=== PATIENT | female | born 1990 | race Caucasian/White ===

== ENCOUNTER 2017-07-07 11:37 | Emergency (ER) | payer OTHER ==
[~2017-07-07] VITALS: Ht 149.8 cm; Wt 49.9 kg
[~2017-07-07 11:37] MED LIST: CIPRO500 MG PO; CLEOCIN HCL150 MG PO; K-Dur 20MEQ20 MEQ PO; KEFLEX500 MG PO; ZOFRAN ODT8 MG PO; Zofran4 MG PO
[2017-07-07] MEDS ORDERED: VICODIN 5-3001 EACH PO (11:57)
[2017-07-07] MEDS ORDERED: Zofran4 MG SL (12:48)
== END 2017-07-07 13:04 | disposition home or self-care (01) ==
LOC: ED 11:37
DX: R11.2 Nausea with vomiting, unspecified (principal); Z98.890 Other specified postprocedural states

== ENCOUNTER 2018-03-10 05:50 | Emergency (ER) | payer OTHER ==
[~2018-03-10] VITALS: Ht 147.3 cm; Wt 52.2 kg
[~2018-03-10 05:50] MED LIST changes: +VICODIN 5-3001 EACH PO; +Zofran4 MG SL
[2018-03-10 06:20] LABS: BASO # 0.1 10*3/uL (0.0-0.1); EOS # 0.1 10*3/uL (0.0-0.4); HEMATOCRIT 38.3 % (37.0-47.0); HEMOGLOBIN 11.9 g/dl (12.0-16.0); LYMPH # 1.9 10*3/uL (1.3-4.4); MEAN CELL VOLUME 83.1 fl (81.0-99.0); MEAN CORPUSCULAR HGB 25.8 pg (27.0-31.0); MEAN CORPUSCULAR HGB CONC 31.1 g/dl (33.0-37.0); MEAN PLATELET VOLUME 10.3 fl (9.6-12.3); MONO # 0.4 10*3/uL (0.1-1.0); MONO % 6.1 % (3.0-9.0); NEUT # 4.3 10*3/uL (2.3-7.9); NEUT % 62.8 % (47.0-73.0); PLATELET COUNT AUTOMATED 356 10*3/uL (130-400); RED BLOOD COUNT 4.61 10*6/uL (4.10-5.10); RED CELL DISTRI WIDTH 14.7 % (0-14.5); WHITE BLOOD COUNT 6.9 10*3/uL (4.8-10.8)
[2018-03-10 06:31] LABS: BUN 11 mg/dl (7-24); CHLORIDE 105 mmol/L (98-107); CREATININE 0.59 mg/dL (0.55-1.02); POTASSIUM 3.8 mmol/L (3.5-5.1); SODIUM 139 mmol/L (136-145)
[2018-03-10] MEDS ORDERED: IMITREX100 MG PO (06:43)
[2018-03-10] MEDS ORDERED: ZOFRAN ODT4 MG SL (06:43)
== END 2018-03-10 07:02 | disposition home or self-care (01) ==
LOC: ED 05:50
PROVIDERS: Emergency Medicine Emergency Medical Services
DX: G43.909 Migraine, unspecified, not intractable, without status migrainosus (principal)

== ENCOUNTER 2018-07-22 14:03 | Emergency (ER) | payer OTHER ==
[~2018-07-22 14:03] MED LIST changes: +IMITREX100 MG PO; +ZOFRAN ODT4 MG SL
== END 2018-07-22 15:10 | disposition home or self-care (01) ==
LOC: ED 14:03
DX: G43.909 Migraine, unspecified, not intractable, without status migrainosus (principal)

== ENCOUNTER 2019-04-26 20:21 | Emergency (ER) | payer SELFPAY ==
[~2019-04-26] VITALS: Ht 149.8 cm; Wt 49.9 kg
[2019-04-26 20:58] LABS: BASO # 0.1 10*3/uL (0.0-0.1); BASO % 0.6 % (0.0-1.0); EOS # 0.1 10*3/uL (0.0-0.4); EOS % 0.6 % (1.0-4.0); HEMATOCRIT 36.6 % (37.0-47.0); HEMOGLOBIN 11.7 g/dl (12.0-16.0); LYMPH # 1.7 10*3/uL (1.3-4.4); LYMPH % 15.3 % (27.0-41.0); MEAN CELL VOLUME 83.4 fl (81.0-99.0); MEAN CORPUSCULAR HGB 26.7 pg (27.0-31.0); MEAN PLATELET VOLUME 10.8 fl (9.6-12.3); MONO # 0.7 10*3/uL (0.1-1.0); MONO % 6.1 % (3.0-9.0); NEUT # 8.4 10*3/uL (2.3-7.9); NEUT % 77.1 % (47.0-73.0); PLATELET COUNT AUTOMATED 314 10*3/uL (130-400); RED BLOOD COUNT 4.39 10*6/uL (4.10-5.10); RED CELL DISTRI WIDTH 15.5 % (0-14.5); WHITE BLOOD COUNT 10.9 10*3/uL (4.8-10.8)
[2019-04-26 21:03] LABS: BILIRUBIN NEGATIVE (NEGATIVE); BLOOD NEGATIVE (NEGATIVE); CLARITY CLEAR (CLEAR); COLOR YELLOW (YELLOW); GLUCOSE NEGATIVE (NEGATIVE); KETONE 3+ (NEGATIVE); LEUKO ESTERASE NEGATIVE (NEGATIVE); NITRITE NEGATIVE (NEGATIVE); PH 7.5 (5.0-9.0); SPECIFIC GRAVITY 1.015 (1.005-1.030); UROBILINOGEN 0.2 E.U./dl (0.2-1.0)
[2019-04-26 21:13] LABS: URINE AMPHETAMINES < 1000 (1000ng/ml); URINE BARBITURATES < 200 (200ng/ml); URINE BENZODIAZEPINES < 200 (200ng/ml); URINE CANNABINOIDS (THC) < 50 (50ng/ml); URINE COCAINE < 300 (300ng/ml); URINE METHADONE < 300 (300ng/ml); URINE OPIATES < 300 (300ng/ml)
[2019-04-26 21:14] LABS: BACTERIA 3+
[2019-04-26 21:15] LABS: ALBUMIN 4.2 gm/dl (3.1-4.5); ALKALINE PHOSPHATASE 51 U/L (45-117); BUN 10 mg/dl (7-24); CHLORIDE 107 mmol/L (98-107); CREATININE 0.61 mg/dL (0.55-1.02); POTASSIUM 3.3 mmol/L (3.5-5.1); SGOT/AST 18 IU/L (3-35); SGPT/ALT 17 U/L (12-78); SODIUM 136 mmol/L (136-145); TOTAL PROTEIN 8.1 gm/dL (6.4-8.2)
[2019-04-26 21:17] LABS: URINE PHENCYCLIDINE < 25 (25ng/ml)
[2019-04-26] MEDS ORDERED: K-TAB20 MEQ PO (22:16)
== END 2019-04-26 22:12 | disposition home or self-care (01) ==
LOC: ED 20:21
PROVIDERS: Physician Assistant
DX: E87.6 Hypokalemia (principal); G43.909 Migraine, unspecified, not intractable, without status migrainosus; M54.2 Cervicalgia

== ENCOUNTER 2019-05-10 01:51 | Emergency (ER) | payer SELFPAY ==
[~2019-05-10] VITALS: Wt 47.6 kg
[~2019-05-10 01:51] MED LIST changes: +K-TAB20 MEQ PO
== END 2019-05-10 03:29 | disposition home or self-care (01) ==
LOC: ED 01:51
DX: G43.909 Migraine, unspecified, not intractable, without status migrainosus (principal)